=== PATIENT | male | born 1950 | race Caucasian/White ===

== ENCOUNTER 2021-04-03 07:30 | Observation (INO) | payer MEDICARE, OTHER ==
[2021-04-02 14:01] LABS: BASOPHILS % 0.4 % (0.0-1.0); EOSINOPHILS # (AUTO) 0.1 (0.0-0.4); HEMATOCRIT 47.5 % (38.2-49.6); HEMOGLOBIN 15.5 g/dL (14.0-18.0); LYMPHOCYTES # (AUTO) 2.2 (1.0-3.2); LYMPHOCYTES % 26.4 % (18.0-39.1); MEAN CORPUSCULAR HEMOGLOBIN 30.9 pg (28-32); MEAN CORPUSCULAR HGB CONC 32.6 g/dL (31-35); MEAN CORPUSCULAR VOLUME 94.6 fL (81-99); MONOCYTES # (AUTO) 0.9 (0.2-0.8); MONOCYTES % 10.9 % (4.4-11.3); NEUTROPHILS % 61.1 % (38.7-80.0); PLATELET COUNT 176 x10e3/uL (140-360); RED BLOOD COUNT 5.02 x10e6/uL (4.3-5.7); RED CELL DISTRIBUTION WIDTH 12.4 % (11.7-14.4)
[~2021-04-03] VITALS: Ht 190.5 cm; Wt 129.3 kg
[~2021-04-03 07:30] MED LIST: LISINOPRIL10 MG PO
[2021-04-03] MEDS ORDERED: ROPIVACAINE 246.25 MG, EPINEPHRINE HCL 1:1000 1ML 0.5 MG, CLONIDINE HCL 0.08 MG, KETORO... INJ ONE ×5 (08:00)
[2021-04-03] MEDS ORDERED: CELECOXIB 200 MG CAP ONE (08:11)
[2021-04-03] MEDS ORDERED: DEXAMETHASONE SOD PHOS 10 MG/1 ML VIAL ONE (08:11)
[2021-04-03] MEDS ORDERED: CEFAZOLIN SOD 1 GM/NS 50ML 100 ML IV ONE (08:11)
[2021-04-03] MEDS ORDERED: GABAPENTIN 300 MG CAP ONE (08:11)
[2021-04-03] MEDS ORDERED: HYDROCODONE/APAP 5MG-325MG TAB PO PRN (10:00)
[2021-04-03] MEDS ORDERED: DIPHENHYDRAMINE HCL INJ 50 MG/ML VIAL IV PRN (10:00)
[2021-04-03] MEDS ORDERED: DOCUSATE SODIUM 100 MG CAP PO PRN (10:00)
[2021-04-03] MEDS ORDERED: ONDANSETRON HCL INJ 2MG/ML 2ML 2 MG/ML VIAL IV PRN (10:00)
[2021-04-03] MEDS ORDERED: KETOROLAC TROMETHAMINE 30 MG/ML VIAL IV PRN (10:00)
[2021-04-03] MEDS ORDERED: ACETAMINOPHEN 650 MG SUPP PR PRN (10:00)
[2021-04-03] MEDS ORDERED: FENTANYL CITRATE/PF 100MCG/2 ML INJ ONE ×2 (10:38→12:44)
[2021-04-03] MEDS ORDERED: ETOMIDATE 2 MG/ML 10 ML INJ IV ONE (11:33)
[2021-04-03] MEDS ORDERED: POVIDONE IODINE 0.05% 0.05 % ML PO ONE (11:33)
[2021-04-03] MEDS ORDERED: KETOROLAC TROMETHAMINE 30 MG/ML VIAL ONE (11:33)
[2021-04-03] MEDS ORDERED: ONDANSETRON HCL INJ 2MG/ML 2ML 2 MG/ML VIAL ONE (11:33)
[2021-04-03] MEDS ORDERED: SEVOFLURANE INHAL SOLN 250 ML PEN BTL ONE (11:33)
[2021-04-03] MEDS ORDERED: PROPOFOL IV EMULSION 10 MG/ML 20 ML VIAL ONE (11:33)
[2021-04-03] MEDS ORDERED: LIDOCAINE 2%/ EPINEPHRINE 20ML MDV ONE (12:20)
[2021-04-03] MEDS ORDERED: ROPIVACAINE 0.5% 5 MG/ML 30 ML SDV ONE (12:20)
[2021-04-03 14:20] VITALS: BP 143/68
[2021-04-03] MEDS: SODIUM CHLORIDE 0.9% 1000ML 1,000 ML IV SCH ×2 (15:35→21:24)
[2021-04-03] MEDS: CEFAZOLIN SOD 1 GM/NS 50ML 50 ML IV SCH ×2 (15:35→21:24)
[2021-04-03 16:03] VITALS: BP 127/67
[2021-04-03] MEDS: HYDROCODONE/APAP 7.5MG-325MG 1 EA TAB PO PRN ×2 (16:22→21:25)
[2021-04-03] MEDS: ASPIRIN 325 MG TAB PO SCH (16:22)
[2021-04-03] MEDS: CELECOXIB 100 MG CAP PO SCH (16:22)
[2021-04-03 17:15] VITALS: BP 127/67
[2021-04-03 17:17] VITALS: BP 127/67
[2021-04-03 20:00] VITALS: BP 119/56
[2021-04-03 21:00] VITALS: BP 119/56
[2021-04-03] MEDS ORDERED: ZOLPIDEM TARTRATE 5 MG TAB PO PRN (21:00)
[2021-04-04 00:44] VITALS: BP 108/60
[2021-04-04] MEDS: HYDROCODONE/APAP 7.5MG-325MG 1 EA TAB PO PRN ×3 (02:02→16:22)
[2021-04-04 04:00] VITALS: BP 125/61
[2021-04-04 04:56] LABS: HEMATOCRIT 39.7 % (38.2-49.6); HEMOGLOBIN 12.9 g/dL (14.0-18.0)
[2021-04-04] MEDS: CEFAZOLIN SOD 1 GM/NS 50ML 50 ML IV SCH (05:34)
[2021-04-04] MEDS: SODIUM CHLORIDE 0.9% 1000ML 1,000 ML IV SCH ×2 (05:54→16:00)
[2021-04-04 08:42] VITALS: BP 122/64
[2021-04-04] MEDS ORDERED: LISINOPRIL 10 MG TAB PO SCH (09:00)
[2021-04-04] MEDS: ASPIRIN 325 MG TAB PO SCH ×2 (09:00→16:22)
[2021-04-04] MEDS: CELECOXIB 100 MG CAP PO SCH ×2 (09:00→16:22)
[2021-04-04 09:08] VITALS: BP 122/64
[2021-04-04] MEDS ORDERED: ONDANSETRON HCL 4 MG ORAL DISINTEGRATING TAB PO PRN (10:00)
[2021-04-04] MEDS ORDERED: ACETAMINOPHEN 1000 MG/100 ML IV PRN (10:00)
[2021-04-04 12:08] VITALS: BP 160/71
[2021-04-04 16:08] VITALS: BP 159/74
== END 2021-04-04 16:57 | disposition home or self-care (01) ==
LOC: OR 07:30 → PACU V 09:56 → MED/SURG 14:16
PROVIDERS: ADMIT Specialist; ATTEND Specialist
DX: M17.0 Bilateral primary osteoarthritis of knee (principal); Z01.810 Encounter for preprocedural cardiovascular examination; Z01.812 Encounter for preprocedural laboratory examination; I10 Essential (primary) hypertension; D64.9 Anemia, unspecified; E66.9 Obesity, unspecified; Z68.35 Body mass index [BMI] 35.0-35.9, adult
CPT/HCPCS: 27447; 36415 ×2; 71046; 73560; 85014; 85018; 85025; 93005; 97116 ×2; 97161; 97530; C1713 ×2; C1776 ×3; G0378 ×2; J0171; J0690 ×2; J1100; J1885; J2001; J2405; J2704; J2795; J3010; J7030